=== PATIENT | female | born 1965 ===

== ENCOUNTER 2017-03-31 08:14 | Emergency (ER) | payer BC ==
[2017-03-31 08:23] VITALS: BMI 23.3
[2017-03-31 08:24] VITALS: O2SAT 99
--- NOTE | 2017-03-31 10:08 | ED PDOC ---
HPI: Abdomen Time Seen by Provider: 03/31/17 08:59 Chief Complaint (Nursing): Abdominal Pain History Per: Patient History/Exam Limitations: no limitations Onset/Duration Of Symptoms: Gradual (6 days), Worse Since (today) Current Symptoms Are (Timing): Still Present Severity: Mild Location Of Pain/Discomfort: LUQ, LLQ Quality Of Discomfort: Cramping Associated Symptoms: Nausea, Diarrhea. denies: Fever, Chills, Vomiting, Back Pain, Chest Pain, Constipation, Urinary Symptoms Exacerbating Factors: None Alleviating Factors: None Last Bowel Movement: Yesterday Additional History Per: Patient Additional Complaint(s): c/o "slight abdominal pain" suprapubic area at this time, "sometimes is" in LUQ , LLQ +intermittent nausea/diarrhea x6 days, denies vomiting. no other complaints. no trauma Past Medical History Reviewed: Historical Data, Nursing Documentation, Vital Signs Vital Signs: Last Vital Signs Temp 98.0 F 03/31/17 08:23 Pulse 76 03/31/17 08:23 Resp 20 03/31/17 08:23 BP 151/80 H 03/31/17 08:23 Pulse Ox 99 03/31/17 10:26 - Medical History PMH: HTN, Hypothyroidism - Family History Family History: States: Unknown Family Hx - Living Arrangements Living Arrangements: With Family - Social History Current smoker - smoking cessation education provided: No - Home Medications Home Medications: Ambulatory Orders Medication Instructions Recorded Ciprofloxacin [Cipro] 500 mg PO BID 10 Days 03/31/17 Metronidazole [Flagyl] 500 mg PO QID 10 Days 03/31/17 oxyCODONE/Acetaminophen [Percocet 1 ea PO QID PRN #10 tab 03/31/17 5/325 mg Tab] - Allergies Allergies/Adverse Reactions: Allergies Allergy/AdvReac Type Severity Reaction Status Date / Time No Known Allergies Allergy Verified 03/31/17 08:34 Review of Systems ROS Statement: Except As Marked, All Systems Reviewed And Found Negative Constitutional: Negative for: Fever, Chills Cardiovascular: Negative for: Chest Pain Respiratory: Negative for: Cough Gastrointestinal: Positive for: Nausea, Abdominal Pain. Negative for: Vomiting , Diarrhea Genitourinary Female: Negative for: Dysuria, Frequency, Incontinence, Hematuria , Vaginal Discharge, Vaginal Bleeding, Pelvic Pain Neurological: Negative for: Weakness, Numbness Physical Exam - Reviewed Nursing Documentation Reviewed: Yes Vital Signs Reviewed: Yes - Physical Exam Appears: Positive for: Uncomfortable Head Exam: Positive for: ATRAUMATIC, NORMAL INSPECTION, NORMOCEPHALIC Eye Exam: Positive for: Normal appearance Neck: Positive for: Normal, Painless ROM, Supple. Negative for: Decreased ROM, Limited ROM, Trachea Midline Cardiovascular/Chest: Positive for: Regular Rate, Rhythm, Chest Non Tender. Negative for: Edema, Gallop, Murmur, Bradycardia, Tachycardia Respiratory: Positive for: Normal Breath Sounds. Negative for: Decreased Breath Sounds, Accessory Muscle Use, Crackles, Rales, Rhonchi, Stridor, Wheezing Pulses-Radial (L): 2+ Pulses-Radial (R): 2+ Gastrointestinal/Abdominal: Positive for: Normal Exam, Bowel Sounds, Soft. Negative for: Tenderness Back: Positive for: Normal Inspection. Negative for: L CVA Tenderness, R CVA Tenderness Extremity: Positive for: Normal ROM. Negative for: Tenderness Neurologic/Psych: Positive for: Alert, clinic scheduler II-XII, Oriented, Mood/Affect (calm) . Negative for: Motor/Sensory Deficits, Aphasia, Facial Droop - Laboratory Results Result Diagrams: 03/31/17 10:05 03/31/17 10:05 - ECG ECG: Positive for: Interpreted By Mt ECG Rhythm: Positive for: Normal QRS, Normal ST Segment, Sinus Rhythm (72). Negative for: ST/T Changes O2 Sat by Pulse Oximetry: 99 Pulse Ox Interpretation: Normal - Progress ED Course And Treament: ROCEDURE: CT abdomen pelvis dated 03/31/2017 HISTORY: Left flank pain r/o sotne COMPARISON: No prior TECHNIQUE: Contiguous axial images of the abdomen and pelvis performed without oral or intravenous contrast material. Additional 2 dimensional sagittal and coronal reformats generated. Radiation dose: Total exam DLP = 687.66 mGy-cm. This CT exam was performed using one or more of the following dose reduction techniques: Automated exposure control, adjustment of the mA and/or kV according to patient size, and/or use of iterative reconstruction technique. FINDINGS: LOWER THORAX: Lung bases clear. No infiltrate effusion or basilar pneumothorax. Small hiatal hernia. LIVER: Liver exhibits normal size measuring approximately 15.2 cm CC dimension. No obvious hepatic mass or collection seen on this noncontrast study. . GALLBLADDER AND BILE DUCTS: Gallbladder is physiologically distended. No obvious intraluminal calculi identified. PANCREAS: The pancreas appears grossly unremarkable within limitation of this noncontrast study. SPLEEN: Spleen exhibits normal size and attenuation pattern. ADRENALS: There are no adrenal lesions. . KIDNEYS AND URETERS: Kidneys demonstrate symmetric nephrograms. No evidence of nephrolithiasis or hydronephrosis. . No obvious renal mass or collection seen. BLADDER: Urinary bladder is compressed along its posterior superior margin by enlarged bulky the uterus. REPRODUCTIVE: The uterus is enlarged and heterogeneous with calcifications multiple small calcifications consistent with uterine fibroids. Followup nonemergent ultrasound could be performed for further evaluation APPENDIX: Normal-appearing appendix best seen on axial image number [id number]. No periappendiceal inflammatory changes. BOWEL: Evaluation of the bowel is limited due to the lack of oral contrast material. The stomach is incompletely distended which presumably accounts for slight thick -walled appearance. Gastritis not excluded. Visualized loops of small bowel exhibit normal contour and caliber. No evidence of acute mechanical small bowel obstruction. There are multiple colonic diverticula seen along the descending and sigmoid colon. Minor wall thickening short segment distal descending/sigmoid colon junction which could be in part due to underdistention and peristalsis however there also appears to be some very minimal infiltration changes in the adjacent mesentery (axial image number [id number]). The possibility of a very mild early acute diverticulitis cannot be excluded. PERITONEUM: No gross free intraperitoneal air or fluid. Tiny fat containing umbilical hernia LYMPH NODES: Unremarkable. No significant bulky adenopathy. Lymph nodes. VASCULATURE: Unremarkable. No aortic aneurysm. BONES: Structures. Minor multilevel degenerative spondylosis of the lower thoracic and lumbar spine. There also is a subtle levoscoliosis centered at approximately the L2-L3 level. OTHER FINDINGS: None. IMPRESSION: No evidence of nephrolithiasis or hydronephrosis. Fibroid uterus. Diverticulosis with questionable move mild wall thickening and very minimal infiltration changes within the mesentery adjacent to the distal descending/ sigmoid colon junction ; rule out a very mild diverticulitis. Findings discussed with Dr. Burgess at 11 a.m. with written down and read back verification repeat abd exam revelas no tenderness. advise cipro and flagy. clear liquid diet. sx markedly improved with toradol and flexeril. advise not to drive on percocet. advise close f/u with pmd. immediate return if worsening. pt leaves ambulatory and in good spirits Re-evaluation Time: 11:05 Condition: Improved Disposition - Clinical Impression Clinical Impression: Diverticulitis large intestine w/o perforation or abscess w/o bleeding - Patient ED Disposition Is Patient to be Admitted: No Counseled Patient/Family Regarding: Studies Performed, Diagnosis, Need For Followup, Rx Given - Disposition Referrals: [facility] [Outside] (2 to 3 days) Clifford Arias MD [Staff Provider] - Disposition: Routine/Home Disposition Time: 11:10 Condition: GOOD Prescriptions: Ciprofloxacin [Cipro] 500 mg PO BID 10 Days Metronidazole [Flagyl] 500 mg PO QID 10 Days oxyCODONE/Acetaminophen [Percocet 5/325 mg Tab] 1 ea PO QID PRN #10 tab PRN Reason: Pain, Moderate (4-7) Instructions: Diverticulitis (ED), Clear Liquid Diet (ED) Forms: [employer] (Martiniquais)
[2017-03-31 10:09] LABS: BASO % 0.6 % (0.0-2.0); EOS # 0.1 K/uL (0.0-0.7); EOS % 1.4 % (0.0-4.0); HEMATOCRIT 40.3 % (34.0-47.0); LYMPH # 1.4 K/uL (1.0-4.3); MEAN CELL VOLUME 87.3 fl (81.0-99.0); MEAN CORPUSCULAR HEMOGLOBIN 30.2 pg (27.0-31.0); MEAN CORPUSCULAR HGB CONC 34.7 g/dL (33.0-37.0); MEAN PLATELET VOLUME 8.1 fl (7.2-11.7); MONO # 0.5 K/uL (0.0-0.8); MONO % 8.1 % (0.0-10.0); NEUT # 3.7 K/uL (1.8-7.0); NEUT % 64.9 % (50.0-75.0); NRBC % 0.1 % (0.0-0.0); RED CELL DISTRIBUTION WIDTH 12.2 % (11.5-14.5); WHITE BLOOD COUNT 5.8 K/uL (4.8-10.8)
[2017-03-31 10:12] LABS: RBC URINE 2 /hpf (0-3); URINE BILIRUBIN NEGATIVE (NEGATIVE); URINE BLOOD SMALL (NEGATIVE); URINE COLOR YELLOW (YELLOW); URINE GLUCOSE (UA) NEG (Normal); URINE KETONE NEGATIVE (NEGATIVE); URINE LEUKOCYTE ESTERASE NEG Leu/uL (Negative); URINE PROTEIN NEGATIVE (NEGATIVE); URINE UROBILINOGEN 0.2-1.0 mg/dL (0.2-1.0); WBC URINE 1 /hpf (0-5)
[2017-03-31 10:24] LABS: ALB/GLOB RATIO 1.4 (1.0-2.1); ALKALINE PHOSPHATASE 63 U/L (38-126); ALT/SGPT 40 U/L (9-52); AMYLASE 82 U/L (30-110); AST/SGOT 30 U/L (14-36); BILIRUBIN,TOTAL 0.8 mg/dl (0.2-1.3); BLOOD UREA NITROGEN 8 mg/dl (7-17); CALCIUM 9.4 mg/dL (8.4-10.2); CARBON DIOXIDE 24 mmol/L (22-30); CHLORIDE 104 mmol/L (98-107); GFR AFRICAN-AMERICAN > 60; GLUCOSE,RANDOM 92 mg/dL (65-105); LIPASE 99 U/L (23-300); POTASSIUM 3.7 MMOL/L (3.6-5.0); SODIUM 141 mmol/l (132-148); TOTAL PROTEIN 7.6 G/DL (6.3-8.2)
[2017-03-31] MEDS ORDERED: Sodium Chloride 0.9% 1,000 ML IV ONE ×2 (11:01→11:15)
[2017-03-31] MEDS ORDERED: Ciprofloxacin 400mg/200ml D5W 400 MG/200 ML BAG IVPB STA (11:03)
--- NOTE | 2017-03-31 11:06 | CT ---
PROCEDURE: CT abdomen pelvis dated 03/31/2017 HISTORY: Left flank pain r/o sotne COMPARISON: No prior TECHNIQUE: Contiguous axial images of the abdomen and pelvis performed without oral or intravenous contrast material. Additional 2 dimensional sagittal and coronal reformats generated. Radiation dose: Total exam DLP = 687.66 mGy-cm. This CT exam was performed using one or more of the following dose reduction techniques: Automated exposure control, adjustment of the mA and/or kV according to patient size, and/or use of iterative reconstruction technique. FINDINGS: LOWER THORAX: Lung bases clear. No infiltrate effusion or basilar pneumothorax. Small hiatal hernia. LIVER: Liver exhibits normal size measuring approximately 15.2 cm CC dimension. No obvious hepatic mass or collection seen on this noncontrast study. . GALLBLADDER AND BILE DUCTS: Gallbladder is physiologically distended. No obvious intraluminal calculi identified. PANCREAS: The pancreas appears grossly unremarkable within limitation of this noncontrast study. SPLEEN: Spleen exhibits normal size and attenuation pattern. ADRENALS: There are no adrenal lesions. . KIDNEYS AND URETERS: Kidneys demonstrate symmetric nephrograms. No evidence of nephrolithiasis or hydronephrosis. . No obvious renal mass or collection seen. BLADDER: Urinary bladder is compressed along its posterior superior margin by enlarged bulky the uterus. REPRODUCTIVE: The uterus is enlarged and heterogeneous with calcifications multiple small calcifications consistent with uterine fibroids. Followup nonemergent ultrasound could be performed for further evaluation APPENDIX: Normal-appearing appendix best seen on axial image number [id number]. No periappendiceal inflammatory changes. BOWEL: Evaluation of the bowel is limited due to the lack of oral contrast material. The stomach is incompletely distended which presumably accounts for slight thick-walled appearance. Gastritis not excluded. Visualized loops of small bowel exhibit normal contour and caliber. No evidence of acute mechanical small bowel obstruction. There are multiple colonic diverticula seen along the descending and sigmoid colon. Minor wall thickening short segment distal descending/sigmoid colon junction which could be in part due to underdistention and peristalsis however there also appears to be some very minimal infiltration changes in the adjacent mesentery (axial image number [id number]). The possibility of a very mild early acute diverticulitis cannot be excluded. PERITONEUM: No gross free intraperitoneal air or fluid. Tiny fat containing umbilical hernia LYMPH NODES: Unremarkable. No significant bulky adenopathy. Lymph nodes. VASCULATURE: Unremarkable. No aortic aneurysm. BONES: Structures. Minor multilevel degenerative spondylosis of the lower thoracic and lumbar spine. There also is a subtle levoscoliosis centered at approximately the L2-L3 level. OTHER FINDINGS: None. IMPRESSION: No evidence of nephrolithiasis or hydronephrosis. Fibroid uterus. Diverticulosis with questionable move mild wall thickening and very minimal infiltration changes within the mesentery adjacent to the distal descending/ sigmoid colon junction ; rule out a very mild diverticulitis. Findings discussed with Dr. Burgess at 11 a.m. with written down and read back verification
[2017-03-31] MEDS ORDERED: metroNIDAZOLE 500mg/100ml NS 100 ML IVPB SCH (11:15)
[2017-03-31] MEDS ORDERED: Ciprofloxacin 400mg/200ml D5W 400 MG/200 ML BAG IVPB ONE (11:51)
[2017-03-31 13:14] VITALS: BP 126/86; PULSE 65; RESP 18; TEMP 98
--- NOTE | 2017-04-02 09:56 | CARD ---
APPROVED REPORT EKG Measurement Heart [id number] <Conclusion> Normal sinus rhythm Normal ECG
== END 2017-03-31 13:17 | disposition home or self-care (01) ==
LOC: H.ER 08:14
DX: K57.32 Diverticulitis of large intestine without perforation or abscess without bleeding (principal)
CPT/HCPCS: 74176; 80053; 81003; 81025; 82150; 83690; 84484; 85025; 96361; 96365; 99283; J0744; J7040

== ENCOUNTER 2017-12-18 18:29 | Emergency (ER) | payer BC ==
[2017-12-18 18:29] VITALS: BMI 23.3
--- NOTE | 2017-12-18 19:27 | ED PDOC ---
Lower Extremity Pain/Injury Time Seen by Provider: 12/18/17 18:48 Chief Complaint (Nursing): Trauma Chief Complaint (Provider): Injuryt o Right History Per: Patient History/Exam Limitations: no limitations Onset/Duration Of Symptoms: Hrs Current Symptoms Are (Timing): Still Present Severity: None Additional Complaint(s): 52 year old female presents to the emergency department complaining of right toe pain. The patient reports that earlier today she struck her right 5th toe against a bag on the floor and from since then she has been feeling pain. Denies numbness, tingling and any other injury. - Ankle/Foot Description Of Injury: Struck Against Object Past Medical History Reviewed: Historical Data, Nursing Documentation, Vital Signs Vital Signs: Last Vital Signs Temp 97.7 F 12/18/17 18:47 Pulse 67 12/18/17 18:47 Resp 20 12/18/17 18:47 BP 156/93 H 12/18/17 18:47 Pulse Ox 100 12/18/17 18:47 - Medical History PMH: HTN, Hypothyroidism - Family History Family History: States: Unknown Family Hx - Home Medications Home Medications: Ambulatory Orders Medication Instructions Recorded Ciprofloxacin [Cipro] 500 mg PO BID 10 Days tab 03/31/17 Metronidazole [Flagyl] 500 mg PO QID 10 Days tablet 03/31/17 oxyCODONE/Acetaminophen [Percocet 1 ea PO QID PRN #10 tab 03/31/17 5/325 mg Tab] - Allergies Allergies/Adverse Reactions: Allergies Allergy/AdvReac Type Severity Reaction Status Date / Time mushroom Allergy RASH Verified 12/18/17 18:49 Review of Systems ROS Statement: Except As Marked, All Systems Reviewed And Found Negative Musculoskeletal: Positive for: Other (pain to right fifth toe) Physical Exam - Reviewed Nursing Documentation Reviewed: Yes Vital Signs Reviewed: Yes - Physical Exam Appears: Positive for: Non-toxic, No Acute Distress Skin: Positive for: Normal Color, Warm, Dry. Negative for: Rash Extremity: Positive for: Capillary Refill (less than 2 seconds on right fifth toe), Other (DP pulses 2+ b/l ). Negative for: Deformity, Swelling Neurologic/Psych: Positive for: Alert, Oriented - ECG O2 Sat by Pulse Oximetry: 100 (RA) Pulse Ox Interpretation: Normal - Radiology X-Ray: Interpreted by Me (R 5th toe x-ray) X-Ray Interpretation: Other (displaced fx at distal portion of proximal phanax of 5th toe) Medical Decision Making Medical Decision Makin Initial Impression 52 year old female presenting with right 5th toe pain Initial Plan: * RAD right foot 5th digit * Offered pain meds but refused. 2041 Pt. evaluated by Mary, podiatry resident, who evaluated pt. in ED and spoke with Dr. Kurtis Malin. Outpt. arrangements made. Pt. placed in posterior orthoglass splint by Mary. Crutches and crutch walking instructions provided. Documented by Karuna Gallego acting as a scribe for Jackson Christiansen PA-C. All medical record entries made by the Scribe were at my direction and personally dictated by me. I have reviewed the chart and agree that the record accurately reflects my personal performance of the history, physical exam, medical decision making, and the department course for this patient. I have also personally directed, reviewed, and agree with the discharge instructions and disposition. Disposition - Clinical Impression Clinical Impression: Toe fracture - Patient ED Disposition Is Patient to be Admitted: No - Disposition Referrals: Lolita Gunter MD [Staff Provider] - Disposition: Routine/Home Disposition Time: 20:40 Condition: STABLE Additional Instructions: Follow up with Dr. Kurtis Malin for further evaluation. Call on Wednesday12/20/2017 to make an appointment. Return to ED immediately if symptoms worsen. Instructions: How to Use Crutches, Toe Fracture (DC), Going Up and Down Curbs or Stairs With a Walker or Crutches Forms: [employer] (Amharic) Print Language: GEORGIAN
--- NOTE | 2017-12-18 19:28 | CP.PCM.CON ---
History of Present Illness - History of Present Illness History of Present Illness: Ortho - Dr. Bolton 52 year old female presents to ED complaining of right 5th digit pain. Patient states at 18:00 this evening she struck her 5th digit against a bag and saw that her toe "looked funny" and was positioned abnormally. At present, patient admits to pain upon 5th digit ROM. States she was able to walk without difficulty. Offers no other complaints. Review of Systems - Review of Systems All systems: reviewed and no additional remarkable complaints except (as per HPI ) Past Patient History - Infectious Disease Hx of Infectious Diseases: None - Past Social History Smoking Status: Never Smoked - CARDIAC Hx Hypertension: Yes - ENDOCRINE/METABOLIC Hx Hypothyroidism: Yes - PSYCHIATRIC Hx Substance Use: No - SURGICAL HISTORY Hx Surgeries: Yes Other/Comment: left knee ACL sx - ANESTHESIA Hx Anesthesia: Yes Hx Anesthesia Reactions: No Meds Allergies/Adverse Reactions: Allergies Allergy/AdvReac Type Severity Reaction Status Date / Time mushroom Allergy RASH Verified 12/18/17 18:49 Physical Exam - Constitutional Appears: Well, Non-toxic, No Acute Distress - Extremities Exam Extremities exam: Positive for: full ROM, joint swelling (5th digit), normal capillary refill, tenderness (5th digit proximal phalanx, tenderness upon 5th digit ROM), pedal pulses present. Negative for: normal inspection - Neurological Exam Neurological exam: Alert, Oriented x3, Reflexes Normal - Psychiatric Exam Psychiatric exam: Normal Affect, Normal Mood - Skin Skin Exam: Intact (No open lesions noted), Normal Color, Warm Results - Vital Signs Recent Vital Signs: Last Vital Signs Temp 97.7 F 12/18/17 18:47 Pulse 67 12/18/17 18:47 Resp 20 12/18/17 18:47 BP 156/93 H 12/18/17 18:47 Pulse Ox 100 12/18/17 19:27 Assessment & Plan - Assessment and Plan (Free Text) Assessment: 52 year old female with right foot 5th digit proximal phalanx fracture, displaced Plan: Patient seen and evaluated Discussed with attending, Dr. Bolton Right foot XR reviewed: displaced fracture along distal aspect of 5th proximal phalanx Right 5th digit reduction performed; 4th and 5th digit racquel splinted Posterior splint applied to RLE; patient to be NWB RLE with the assistance of crutches Pain control per ED Patient to follow up with Dr. Bolton in office upon discharge Stable for dc per ortho
[2017-12-18] MEDS ORDERED: Lidocaine 1% Inj (20ml) INFIL STA (20:36)
[2017-12-18 21:30] VITALS: BP 157/88; PULSE 66; RESP 19; TEMP 98.2
[2017-12-18 22:06] VITALS: O2SAT 100
--- NOTE | 2017-12-19 07:38 | RAD ---
HISTORY: trauma COMPARISON: No prior FINDINGS: BONES: Fracture of the 5th proximal phalanx. JOINTS: Normal. No osteoarthritis. SOFT TISSUE: Normal. OTHER FINDINGS: None . IMPRESSION: Fifth proximal phalanx fracture.
== END 2017-12-18 21:29 | disposition home or self-care (01) ==
LOC: H.ER 18:29
DX: S92.351A Displaced fracture of fifth metatarsal bone, right foot, initial encounter for closed fracture (principal); W22.8XXA Striking against or struck by other objects, initial encounter; Y92.89 Other specified places as the place of occurrence of the external cause; E03.9 Hypothyroidism, unspecified; I10 Essential (primary) hypertension